=== PATIENT | female | born 1970 | race Two or more races ===

== ENCOUNTER 2025-03-18 22:03 | Emergency (ER) | payer OTHER ==
[~2025-03-18] VITALS: Ht 162.6 cm; Wt 71.7 kg
[2025-03-18] MEDS ORDERED: AVAPRO75 MG PO (22:25)
[2025-03-18] MEDS ORDERED: GRALISE600 MG (22:25)
[2025-03-19] MEDS ORDERED: ACETAMINOPHEN 500 MG GEL..CAP PO STA (01:08)
[2025-03-19] MEDS ORDERED: ALBUTEROL SULFATE 3 ML/2.5 MG AMPUL.NEB IH STA (01:08)
[2025-03-19] MEDS ORDERED: BUDESONIDE 0.5 MG/2 ML AMPUL.NEB IH STA (01:08)
[2025-03-19] MEDS ORDERED: BUDESONIDE 0.5 MG/2 ML AMPUL.NEB IH ONE (01:09)
[2025-03-19] MEDS ORDERED: ACETAMINOPHEN 500 MG GEL..CAP PO ONE (01:09)
[2025-03-19] MEDS ORDERED: ALBUTEROL SULFATE 3 ML/2.5 MG AMPUL.NEB IH ONE (01:10)
[2025-03-19 01:28] LABS: ABG PH 7.422 (7.35-7.45); ABG PO2 144.4 mmHg (80-100); ABG pCO2 39.3 mmHg (35-45); BASE EXCESS 0.7 mmol/l; SaO2 99.3 %; Tco2 26.2 mmol/l
[2025-03-19 01:30] LABS: HEMATOCRIT 37.6 % (36.0-45.00); HEMOGLOBIN 12.4 g/dL (12.0-15.00); MEAN CELL VOLUME 83.5 fL (80.00-100.00); MEAN CORPUSCULAR HEMOGLOBIN 27.5 pg (27.00-32.0); MEAN CORPUSCULAR HGB CONC 32.9 g/dl (32.0-36.0); PLATELET COUNT 240 K/uL (150-450); RED CELL DISTRIBUTION WIDTH 13.9 % (11.5-14.5)
[2025-03-19 06:20] LABS: allen test SATISFACTORY; mode NASAL CANNULA; o2 28 %; puncture site RADIAL LEFT
== END 2025-03-19 03:39 ==
LOC: ER 22:03
PROVIDERS: General Practice
DX: T59.891A Toxic effect of other specified gases, fumes and vapors, accidental (unintentional), initial encounter (principal); R06.02 Shortness of breath; Y92.813 Airplane as the place of occurrence of the external cause; Z88.8 Allergy status to other drugs, medicaments and biological substances; I10 Essential (primary) hypertension; J45.909 Unspecified asthma, uncomplicated

== ENCOUNTER 2025-08-13 14:01 | Emergency (ER) | payer OTHER ==
[~2025-08-13] VITALS: Ht 160 cm; Wt 77.1 kg
[~2025-08-13 14:01] MED LIST: AVAPRO75 MG PO; GRALISE600 MG
[2025-08-13] MEDS ORDERED: PROAIR RESPICL90 MCG (14:09)
[2025-08-13] MEDS ORDERED: SYMBICORT 80/10.2 GM (14:09)
[2025-08-13] MEDS ORDERED: 0.9 % SODIUM CHLORIDE 1,000 ML IV STA (15:37)
[2025-08-13 15:59] LABS: BASO % 0.1 % (0.1-1.2); EOS # 0.14 (0.04-0.54); EOS % 1.7 % (0.7-7.0); LYMPH # 0.66 (1.18-3.74); LYMPH % 7.8 % (19.3-53.1); MEAN PLATELET VOLUME 9.40 fl (9.4-12.4); MONO # 0.05 (0.24-0.82); MONO % 0.6 % (4.7-12.5); NEUT # 7.58 (1.56-6.13); NEUT % 89.6 % (34.0-71.1); RED CELL DISTRIBUTION WIDTH 13.1 % (11.6-14.4)
[2025-08-13 16:30] LABS: ALT/SGPT 31.0 U/L (12-78); AST/SGOT 21.0 U/L (15-37); BILIRUBIN TOTAL 0.63 mg/dL (0.3-1.2); BUN CREA RATIO 16.0 (7.0-25.0); CREATININE SERUM 0.87 mg/dL (0.55-1.02); GFR 67.6; GLOBULINA 4.2 G/DL (2.4-3.5); GLUCOSE FASTING 99.0 mg/dL (65-100); OSMOLALITY SERUM 280.0 MOSM/KG (275-295)
[2025-08-13 17:24] LABS: URINE APPEARANCE Cloudy; URINE BILIRRUBIN Small (NEGATIVE); URINE BLOOD Negative; URINE COLOR Dark Yellow; URINE GLUCOSE Negative (NEGATIVE); URINE LEUKOCYTE Small; URINE NITRATE Negative; URINE PROTEIN 30 (NEGATIVE); URINE UROBILINOGEN 1.0 E.U./dl
[2025-08-13 17:29] LABS: URINE BACTERIA 103.1 uL (0.0-1933); URINE CAST 1.61 uL (0.0-1.40); URINE EPITHELIAL CELLS 52.7 uL (0.0-38.8); URINE RBC 37.8 uL (0.0-20.8); URINE WBC 39.5 uL (0.0-23.2)
[2025-08-13 17:55] LABS: URINE CRYSTALS MODERATE /HPF; URINE KETONE 40 (NEGATIVE); URINE MUCUS HEAVY
[2025-08-13] MEDS ORDERED: KETOROLAC TROMETHAMINE 30 MG VIAL IM STA (18:06)
[2025-08-13] MEDS ORDERED: ONDANSETRON HCL 2 MG/ML VIAL IV ONE (18:15)
[2025-08-13] MEDS ORDERED: FAMOTIDINE/PF 20 MG/2 ML VIAL IV ONE (18:15)
[2025-08-13] MEDS ORDERED: DEXAMETHASONE SODIUM PHOSPHATE 4 MG/ML VIAL IV ONE (18:15)
[2025-08-13] MEDS ORDERED: KETOROLAC TROMETHAMINE 30 MG VIAL ONE (18:18)
[2025-08-13] MEDS ORDERED: ONDANSETRON HCL 2 MG/ML VIAL ONE (18:37)
[2025-08-13] MEDS ORDERED: FAMOTIDINE/PF 20 MG/2 ML VIAL ONE (18:37)
[2025-08-13] MEDS ORDERED: DEXAMETHASONE SODIUM PHOSPHATE 4 MG/ML VIAL ONE (18:37)
[2025-08-13 18:58] LABS: CKMB < 1.0 NG/ML (0.5-3.6)
[2025-08-13] MEDS ORDERED: CIPRO500 MG PO (22:01)
[2025-08-13] MEDS ORDERED: METRONIDAZOLE500 MG PO (22:01)
[2025-08-13] MEDS ORDERED: PROTONIX40 MG PO (22:01)
[2025-08-13] MEDS ORDERED: INTESTINEX680 M1 PO (22:01)
[2025-08-13] MEDS ORDERED: PEPCID AC20 MG PO (22:01)
[2025-08-13] MEDS ORDERED: IBU600 MG PO (22:02)
== END 2025-08-13 22:49 | disposition home or self-care (01) ==
LOC: ER 14:01
PROVIDERS: General Practice
DX: K52.9 Noninfective gastroenteritis and colitis, unspecified (principal); M94.0 Chondrocostal junction syndrome [Tietze]; R10.9 Unspecified abdominal pain; Z88.4 Allergy status to anesthetic agent; Z88.5 Allergy status to narcotic agent; Z88.6 Allergy status to analgesic agent
CPT/HCPCS: 36415; 74177; 93005; Q9965